=== PATIENT | female | born 1935 | race Caucasian/White ===

== ENCOUNTER 2020-08-24 10:06 | Inpatient (IN) ==
[2020-08-24 11:28] LABS: Basophils % 0.8 % (0.0-0.8); Eosinophils # 0.2 10*3/uL (0.0-0.87); Hematocrit 37.6 VOL% (35.7-47.0); Hemoglobin 12.9 GM/DL (12.0-16.0); Immature Granulocytes % 0.8 %; Immature Granulocytes Absolute 0.04 #; Lymphocytes # 0.8 10*3/uL (1.4-4.0); Lymphocytes % 14.3 % (21.3-54.2); Mean Corpuscular HGB Conc 34.3 GM/DL (32-36); Mean Corpuscular Volume 85.6 FL (87-102); Monocytes % 14.7 % (1.7-12.7); Neutrophils % 66.4 % (38.7-73.9); Platelet Count 271 T/CUMM (130-400); Red Blood Count 4.39 MC/CUMM (3.8-5.5); Red Cell Distribution Width 12.6 % (9.3-17.3); White Blood Count 5.3 T/CUMM (4-12)
[2020-08-24 11:40] LABS: Albumin 3.2 G/DL (3.4-5.0); Bilirubin,Total 0.7 MG/DL (0.2-1.0); Osmolality,Calculated 284.4 MOS/KG (273-304); Total Protein 7.4 G/DL (6.4-8.3)
[2020-08-24] MEDS ORDERED: cefTRIAXone 1,000 MG in SODIUM CHLORIDE 0.9% 100 ML IV STA (11:48)
[2020-08-24 12:23] LABS: Bacteria,Urine Many /HPF (Few); Bilirubin,Urine Negative (Negative); Blood, Urine Moderate mg/dL (Negative); Glucose,Urine (UA) Negative (Negative); Ketones,Urine Negative (Negative); Mucus,Urine Occasional /LPF (Occasional); Nitrite,Urine Negative (Negative); Protein,Urine 30 MG/DL; RBC,Urine 664 /HPF (0-4); Urine Appearance CLOUDY (Clear); Urine Specific Gravity 1.012 (1.001-1.035); Urine Urobilinogen < 2.0 EU/DL (0.2-1.0); WBC,Urine 411 /HPF (0-6)
[2020-08-24 12:42] LABS: Urine Color Dark Brown (Yellow)
[2020-08-24] MEDS ORDERED: GLUCAGON 1 MG VIAL IM PRN (14:06)
[2020-08-24] MEDS ORDERED: DEXTROSE 50% 25 GM/50 ML VIAL IV PRN (14:06)
[2020-08-24] MEDS ORDERED: PROCHLORPERAZINE 5 MG TABLET PO PRN (14:24)
[2020-08-24] MEDS: SODIUM CHLORIDE 0.9% 1,000 ML IV SCH (17:13)
[2020-08-24] MEDS: ENOXAPARIN 40 MG/0.4 ML SYRINGE SUBCUT SCH (17:13)
[2020-08-24] MEDS: POLYETHYLENE GLYCOL POWDER 17 GM PACK PO SCH (17:14)
[2020-08-24] MEDS: BISACODYL 5 MG TABLET PO PRN (19:58)
[2020-08-24] MEDS: DOCUSATE SODIUM 100 MG CAPSULE PO PRN (19:58)
[2020-08-24] MEDS: ACETAMINOPHEN 325 MG TABLET PO PRN (23:05)
[2020-08-25 07:07] LABS: Calcium 9.2 MG/DL (8.5-10.1); Osmolality,Calculated 289.8 MOS/KG (273-304)
[2020-08-25] MEDS: SODIUM CHLORIDE 0.9% 1,000 ML IV SCH (08:25)
[2020-08-25] MEDS: PANTOPRAZOLE 40 MG TABLET PO SCH (08:26)
[2020-08-25] MEDS: cefTRIAXone 2,000 MG in SYRINGE 1 EACH IV SCH (11:55)
[2020-08-25] MEDS: ENOXAPARIN 40 MG/0.4 ML SYRINGE SUBCUT SCH (15:34)
[2020-08-25] MEDS: POLYETHYLENE GLYCOL POWDER 17 GM PACK PO SCH (15:35)
[2020-08-25] MEDS: DOCUSATE SODIUM 100 MG CAPSULE PO PRN (20:47)
[2020-08-25] MEDS: BISACODYL 5 MG TABLET PO PRN (20:47)
[2020-08-26] MEDS: SODIUM CHLORIDE 0.9% 1,000 ML IV SCH ×2 (02:40→17:57)
[2020-08-26 06:54] LABS: Basophils # 0.1 10*3/uL (0.0-0.2); Eosinophils # 0.4 10*3/uL (0.0-0.87); Eosinophils % 8.8 % (0.00-10.9); Hematocrit 32.3 VOL% (35.7-47.0); Immature Granulocytes % 0.6 %; Immature Granulocytes Absolute 0.03 #; Lymphocytes # 1.1 10*3/uL (1.4-4.0); Lymphocytes % 21.2 % (21.3-54.2); Mean Corpuscular HGB Conc 34.1 GM/DL (32-36); Mean Corpuscular Volume 86.8 FL (87-102); Mean Platelet Volume 10.2 FL (9.6-12.0); Monocytes % 13.8 % (1.7-12.7); Neutrophils % 54.6 % (38.7-73.9); Platelet Count 279 T/CUMM (130-400); Red Blood Count 3.72 MC/CUMM (3.8-5.5); Red Cell Distribution Width 12.7 % (9.3-17.3)
[2020-08-26] MEDS: PANTOPRAZOLE 40 MG TABLET PO SCH (09:06)
[2020-08-26] MEDS: POLYETHYLENE GLYCOL POWDER 17 GM PACK PO SCH (09:06)
[2020-08-26] MEDS: cefTRIAXone 2,000 MG in SYRINGE 1 EACH IV SCH (12:45)
[2020-08-26] MEDS: ENOXAPARIN 40 MG/0.4 ML SYRINGE SUBCUT SCH (15:28)
[2020-08-26] MEDS: ACETAMINOPHEN 325 MG TABLET PO PRN (21:34)
[2020-08-27 06:15] LABS: Basophils # 0.1 10*3/uL (0.0-0.2); Eosinophils # 0.4 10*3/uL (0.0-0.87); Eosinophils % 8.8 % (0.00-10.9); Hematocrit 31.2 VOL% (35.7-47.0); Hemoglobin 10.6 GM/DL (12.0-16.0); Immature Granulocytes % 0.4 %; Immature Granulocytes Absolute 0.02 #; Lymphocytes # 1.4 10*3/uL (1.4-4.0); Lymphocytes % 27.1 % (21.3-54.2); Mean Corpuscular Volume 86.4 FL (87-102); Mean Platelet Volume 9.9 FL (9.6-12.0); Monocytes % 14.8 % (1.7-12.7); Neutrophils % 47.9 % (38.7-73.9); Platelet Count 305 T/CUMM (130-400); Red Blood Count 3.61 MC/CUMM (3.8-5.5); Red Cell Distribution Width 12.7 % (9.3-17.3)
[2020-08-27 06:34] LABS: Osmolality,Calculated 289.4 MOS/KG (273-304)
[2020-08-27] MEDS: PANTOPRAZOLE 40 MG TABLET PO SCH (09:26)
[2020-08-27] MEDS: POLYETHYLENE GLYCOL POWDER 17 GM PACK PO SCH (09:28)
[2020-08-27] MEDS: SODIUM CHLORIDE 0.9% 1,000 ML IV SCH (09:29)
[2020-08-27] MEDS ORDERED: DIPHENOXYLATE/ATROPINE 2.5-0.025 MG TABLET PO PRN (14:55)
[2020-08-27] MEDS: ENOXAPARIN 40 MG/0.4 ML SYRINGE SUBCUT SCH (15:28)
[2020-08-27] MEDS: cefTRIAXone 2,000 MG in SYRINGE 1 EACH IV SCH (15:28)
[2020-08-27 21:31] VITALS: BP 131/67
== END 2020-08-27 17:19 | disposition home health service (06) | DRG 690 ==
LOC: N.ED 10:06 → SUATTDRO 14:06 → N.EDINP 14:06 → N.5E 16:10
PROVIDERS: ADMIT Emergency Medicine; ATTEND Internal Medicine